=== PATIENT | female | born 2000 ===

== ENCOUNTER → 2022-03-05 | Outpatient (CLI) | payer OTHER | LOC: MHCPAIN 12:38 | DX: M54.50 Low back pain, unspecified (principal); M53.3 Sacrococcygeal disorders, not elsewhere classified; G89.29 Other chronic pain | CPT/HCPCS: G0463 ==

== ENCOUNTER 2022-04-20 01:49 | Emergency (ER) | payer OTHER ==
[~2022-04-20] VITALS: Ht 162.6 cm; Wt 59.1 kg
[2022-04-20 01:56] VITALS: TEMP 98.7
[2022-04-20 02:43] LABS: ALBUMIN 3.6 gm/dL (3.5-5.0); BILIRUBIN,TOTAL 0.2 mg/dL (0.2-1.2); CALCIUM 8.3 mg/dL (8.4-10.2); CREATININE, serum 0.75 mg/dL (0.57-1.11); TOTAL PROTEIN 7.1 gm/dL (6.2-8.1)
[2022-04-20 02:50] LABS: POTASSIUM 2.9 mmol/L (3.5-4.5)
[2022-04-20 04:32] VITALS: BP 103/67; PULSE 101
== END 2022-04-20 04:32 | disposition home or self-care (01) ==
LOC: COL.ER 01:49
PROVIDERS: Emergency Medicine
DX: F10.929 Alcohol use, unspecified with intoxication, unspecified (principal); E87.6 Hypokalemia
CPT/HCPCS: J2765; J3480; J7030